=== PATIENT | female | born 1980 | race Caucasian/White ===

== ENCOUNTER 2019-12-26 12:37 | Day surgery (SDC) | payer OTHER ==
[~2019-12-26] VITALS: Ht 162.6 cm; Wt 79.5 kg
[~2019-12-26 12:37] MED LIST: FLAGYL500 MG PO; LEVAQUIN500 MG PO; MEDROL DOSE PACK4 MG PO
[2019-12-26 15:12] VITALS: BP 126/69; Ht 162.6 cm; Wt 79.5 kg
[2019-12-26 17:07] LABS: HEMOGLOBIN 12.1 g/dL (12-16); LYMPHOCYTES 32.2 % (15-50); MCH 29.4 pg (26.0-34.0); MCHC 32.7 g/dL (31.0-37.0); MCV 89.8 fL (80.0-100.0); MEAN PLATELET VOLUME 9.9 fL (7.4-10.4); NEUTROPHILS 61.3 % (40-80); PLATELET COUNT 225 10x3/uL (130-400); RBC 4.12 10x6/uL (4.00-5.40); RDW 12.7 % (11.5-14.5); WBC 8.3 10x3/uL (4.8-10.8)
[2019-12-26 17:11] LABS: CALCIUM 7.8 mg/dL (8.5-10.1); CARBON DIOXIDE 26.6 mmol/L (21.0-32.0); CREATININE - SERUM 0.9 mg/dL (0.6-1.3); POTASSIUM - SERUM 3.6 mmol/L (3.5-5.1)
[2019-12-26 17:17] LABS: ALBUMIN 3.2 g/dL (3.4-5.0); BILIRUBIN - TOTAL 0.29 mg/dL (0.2-1.3); PROTEIN - SERUM 6.4 g/dL (6.4-8.2)
[2019-12-26 19:30] VITALS: BP 96/60
--- NOTE | 2019-12-26 19:30 | NUR ---
PATIENT RESTING IN BED WITH EYES CLOSED AND NO S/S OF DISTRESS. PATIENT WAKES EASILY TO ANSWER QUESTIONS. PATIENT DENIES NEEDS AT THIS TIME. BED IN LOWEST POSITION AND CALL LIGHT WITHIN REACH. ENCOURAGED THE PATIENT TO CALL IF SHE HAS NEEDS. WILL CONTINUE TO MONITOR.
[2019-12-27 00:02] VITALS: BP 102/67
--- NOTE | 2019-12-27 00:12 | NUR ---
PATIENT VOIDED APROX 900ML
[2019-12-27 00:33] LABS: BILIRUBIN NEGATIVE (NEGATIVE); GLUCOSE NEGATIVE (NEGATIVE); KETONE NEGATIVE (NEGATIVE); NITRITE NEGATIVE (NEGATIVE); UROBILINOGEN NORMAL (NORMAL)
[2019-12-27 00:39] LABS: UDS - AMPHET POSITIVE QUAL (NEGATIVE); UDS - BARB NEGATIVE QUAL (NEGATIVE); UDS - BENZO POSITIVE QUAL (NEGATIVE); UDS - COCAINE NEGATIVE QUAL (NEGATIVE); UDS - OPIATE POSITIVE QUAL (NEGATIVE); UDS - PCP NEGATIVE QUAL (NEGATIVE); UDS - THC POSITIVE QUAL (NEGATIVE)
[2019-12-27 05:09] VITALS: BP 88/57
[2019-12-27] MEDS ORDERED: HYDROCODON-ACE1 EA10 PO (05:13)
--- NOTE | 2019-12-27 08:24 | NUR ---
PT ALERT X 4. BREATH SOUNDS CLEAR BILAT. IV TO LEFT UPPER ARM, PATENT, DRESSING CDI. FRED TO LEFT LOWER LEG. PT REPORTING PAIN OF 8/10, MEDICATED PER ORDERS, WILL MONITOR. BED LOW, CALL LIGHT IN REACH. NO OTHER NEEDS AT THIS TIME.
[2019-12-27 09:23] VITALS: BP 100/66
--- NOTE | 2019-12-27 11:27 | MORECARE ---
CASE MANAGEMENT DISCHARGE SUMMARY PATIENT: JOSUÉ COLEMAN MICHEAL UNIT: [id number] ADM DATE: 12/26/19 AGE: 39 : [birth year] SEX: F ROOM/BED: D.1212 AUTHOR: DORA PERRIN PHYSICIAN: REFERRING PHYSICIAN: HALIMA KELSEY MD DATE OF SERVICE: 12/27/19 Discharge Plan Patient Name: JOSUÉ COLEMAN Facility: [facility]:[place] : 1980 Planned Disposition: Home Anticipated Discharge Date: 12/27/19 Discharge Date: Expected LOS: 1 Initial Reviewer: [email or web address] Initial Review Date: 12/27/2019 Generated: 12/27/19 12:26 pm Patient Name: JOSUÉ COLEMAN Page [id number] at 1127 All edits/amendments must be made on the electronic document DICTATION DATE: 12/27/19 1126 STAFFING RN: BRIANNA 12/27/19 1126 RPT#: [id number] DC DATE: STATUS: ADM IN [facility] [address] [place] [address] END OF REPORT
--- NOTE | 2019-12-27 11:33 | MORECARE ---
CASE MANAGEMENT DISCHARGE SUMMARY PATIENT: JOSUÉ COLEMAN MICHEAL UNIT: [id number] ADM DATE: 12/26/19 AGE: 39 : 82 SEX: F ROOM/BED: D.1212 AUTHOR: DORA PERRIN PHYSICIAN: REFERRING PHYSICIAN: HALIMA KELSEY MD DATE OF SERVICE: 12/27/19 Discharge Plan Patient Name: JOSUÉ COLEMAN Facility: [facility]:[place] : 1980 Planned Disposition: Home Anticipated Discharge Date: 12/27/19 Discharge Date: Expected LOS: 1 Initial Reviewer: [email or web address] Initial Review Date: 12/27/2019 Generated: 12/27/19 12:33 pm Comments DCP- Discharge Planning Updated by [email or web address]: Ruth Rose on 12/27/19 10:[address] CM received call from patient's nurse stating patient needed crutches for discharge today. States Dr. Thompson wanted therapy to make sure she was safe on the crutches before she was discharged to home today. CM spoke with patient about DME preference. Patient stated she didn't care which DME CM used to get crutches. Patient signed Patient Choice Form. CM called [facility]. Spoke with Pio. Pio stated he didn't know if they had crutches short enough for patient who is 5'4". States he will check and call CM back. CM awaiting return call. Last DP export: 12/27/19 10:27 a Patient Name: JOSUÉ COLEMAN Page [id number] at 1133 All edits/amendments must be made on the electronic document DICTATION DATE: 12/27/19 1133 RIGGING SUPERVISOR: BRIANNA 12/27/19 1133 RPT#: [id number] DC DATE: STATUS: ADM IN [facility] [address] [place] [address] END OF REPORT
--- NOTE | 2019-12-27 12:06 | MORECARE ---
CASE MANAGEMENT DISCHARGE SUMMARY PATIENT: JOSUÉ COLEMAN MICHEAL UNIT: [id number] ADM DATE: 12/26/19 AGE: 39 : [birth year] SEX: F ROOM/BED: D.1212 AUTHOR: DORA PERRIN PHYSICIAN: REFERRING PHYSICIAN: HALIMA KELSEY MD DATE OF SERVICE: 12/27/19 Discharge Plan Patient Name: JOSUÉ COLEMAN Facility: [facility]:[place] : 1980 Planned Disposition: Home Anticipated Discharge Date: 12/27/19 Discharge Date: Expected LOS: 1 Initial Reviewer: [email or web address] Initial Review Date: 12/27/2019 Generated: 12/27/19 1:05 pm Comments DCP- Discharge Planning Updated by [email or web address]: Ruth Rose on 12/27/19 11:[address] Pio with [employer] called back and stated the shortest crutches they had in stock were too tall for patient, they would only go down to 5'6". CM called [employer]. Spoke with Bao. States they are not in network with [employer]. CM called [employer]. Left message with answering service. DCP- Discharge Planning Updated by [email or web address]: Ruth Rose on 12/27/19 10:[address] CM received call from patient's nurse stating patient needed crutches for discharge today. States Dr. Thompson wanted therapy to make sure she was safe on the crutches before she was discharged to home today. CM spoke with patient about DME preference. Patient stated she didn't care which DME CM used to get crutches. Patient signed Patient Choice Form. CM called [employer]. Spoke with Pio. Pio stated he didn't know if they had crutches short enough for patient who is 5'4". States he will check and call CM back. CM awaiting return call. Last DP export: 12/27/19 10:33 a Patient Name: JOSUÉ COLEMAN Page [phone] at 1206 All edits/amendments must be made on the electronic document DICTATION DATE: 12/27/19 1205 CREATIVE ART DIRECTOR: DM 12/27/195 RPT#: [id number] DC DATE: STATUS: ADM IN [facility] [address] [place] [address] END OF REPORT
--- NOTE | 2019-12-27 12:13 | MORECARE ---
CASE MANAGEMENT DISCHARGE SUMMARY PATIENT: JOSUÉ COLEMAN MICHEAL UNIT: [id number] ADM DATE: 12/26/19 AGE: 39 : 82 SEX: F ROOM/BED: D.1212 AUTHOR: DORA PERRIN PHYSICIAN: REFERRING PHYSICIAN: HALIMA KELSEY MD DATE OF SERVICE: 12/27/19 Discharge Plan Patient Name: JOSUÉ COLEMAN Facility: [facility]:[place] : 1980 Planned Disposition: Home Anticipated Discharge Date: 12/27/19 Discharge Date: Expected LOS: 1 Initial Reviewer: [email or web address] Initial Review Date: 12/27/2019 Generated: 12/27/19 1:13 pm Comments DCP- Discharge Planning Updated by [email or web address]: Ruth Rose on 12/27/19 11:[address] Pio with [employer] called back and stated the shortest crutches they had in stock were too tall for patient, they would only go down to 5'6". CM called [employer]. Spoke with Bao. States they are not in network with [employer]. CM called [facility]. Left message with answering service. Received call back from [facility]. They do not have crutches that will fit 5'4" person in stock. CM called [facility]. Left message with answering service. DCP- Discharge Planning Updated by [email or web address]: Ruth Rose on 12/27/19 10:[address] CM received call from patient's nurse stating patient needed crutches for discharge today. States Dr. Thompson wanted therapy to make sure she was safe on the crutches before she was discharged to home today. CM spoke with patient about DME preference. Patient stated she didn't care which DME CM used to get crutches. Patient signed Patient Choice Form. CM called [employer]. Spoke with Pio. Pio stated he didn't know if they had crutches short enough for patient who is 5'4". States he will check and call CM back. CM awaiting return call. Last DP export: 12/27/19 11:06 a Patient Name: JOSUÉ COLEMAN Page [id number] at 1213 All edits/amendments must be made on the electronic document DICTATION DATE: 12/27/191212 WEDDING FLORIST: BRIANNA 12/27/191212 RPT#: [id number] DC DATE: STATUS: ADM IN [facility] [address] [place] [address] END OF REPORT
[2019-12-27 12:28] VITALS: BP 95/56
--- NOTE | 2019-12-27 12:57 | MORECARE ---
CASE MANAGEMENT DISCHARGE SUMMARY PATIENT: JOSUÉ COLEMAN MICHEAL UNIT: [id number] ADM DATE: 12/26/19 AGE: 39 : 82 SEX: F ROOM/BED: D.1212 AUTHOR: MARYCHUY,DORA PHYSICIAN: REFERRING PHYSICIAN: HALIMA KELSEY MD DATE OF SERVICE: 12/27/19 Discharge Plan Patient Name: JOSUÉ COLEMAN Facility: [facility]:[place] : 1980 Planned Disposition: Home Anticipated Discharge Date: 12/27/19 Discharge Date: Expected LOS: 1 Initial Reviewer: [email or web address] Initial Review Date: 12/27/2019 Generated: 12/27/19 1:56 pm Comments DCP- Discharge Planning Updated by [email or web address]: Ruth Rose on 12/27/19 11:[address] Pio with [employer] called back and stated the shortest crutches they had in stock were too tall for patient, they would only go down to 5'6". CM called [employer]. Spoke with Bao. States they are not in network with [email or web address]. CM called [facility]. Left message with answering service. Received call back from [facility]. They do not have crutches that will fit 5'4" person in stock. CM called [facility]. Left message with answering service. Received call back from [facility]. CM was able to find crutches, in stock, at [facility] on [address] and [facility] but they would cost the patient 49.99 +tax. CM spoke with patient about this. Patient states therapist had to adjust the crutches to be taller and wants CM to see if the crutches from [facility] would work. CM spoke with PT, Tony, who stated crutches that fit someone 5'6" would work for patient. CM called [facility] left message with answering service. Awaiting return call. DCP- Discharge Planning Updated by [email or web address]: Ruth Rose on 12/27/19 10:[address] CM received call from patient's nurse stating patient needed crutches for discharge today. States Dr. Thompson wanted therapy to make sure she was safe on the crutches before she was discharged to home today. CM spoke with patient about DME preference. Patient stated she didn't care which DME CM used to get crutches. Patient signed Patient Choice Form. CM called [facility]. Spoke with Pio. Pio stated he didn't know if they had crutches short enough for patient who is 5'4". States he will check and call CM back. CM awaiting return call. Last DP export: 12/27/19 11:13 a Patient Name: JOSUÉ COLEMAN Page [id number] at 1257 All edits/amendments must be made on the electronic document DICTATION DATE: 12/27/191255 HUMAN RESOURCES EXECUTIVE: BRIANNA 12/27/191255 RPT#: [id number] DC DATE: STATUS: ADM IN [facility] [address] [place] [address] END OF REPORT
--- NOTE | 2019-12-27 13:09 | MORECARE ---
CASE MANAGEMENT DISCHARGE SUMMARY PATIENT: JOSUÉ COLEMAN MICHEAL UNIT: [id number] ADM DATE: 12/26/19 AGE: 39 : 82 SEX: F ROOM/BED: D.1212 AUTHOR: MARYCHUY,DORA PHYSICIAN: REFERRING PHYSICIAN: HALIMA KELSEY MD DATE OF SERVICE: 12/27/19 Discharge Plan Patient Name: JOSUÉ COLEMAN Facility: [facility]:[place] : 1980 Planned Disposition: Home Anticipated Discharge Date: 12/27/19 Discharge Date: Expected LOS: 1 Initial Reviewer: [email or web address] Initial Review Date: 12/27/2019 Generated: 12/27/19 2:09 pm Comments DCP- Discharge Planning Updated by [email or web address]: Ruth Rose on 12/27/19 11:[address] Pio with [employer] called back and stated the shortest crutches they had in stock were too tall for patient, they would only go down to 5'6". CM called [employer]. Spoke with Bao. States they are not in network with [employer]. CM called [facility] [place]. Left message with answering service. Received call back from [facility]. They do not have crutches that will fit 5'4" person in stock. CM called [facility]. Left message with answering service. Received call back from [facility]. CM was able to find crutches, in stock, at [facility] on [address] and [facility] but they would cost the patient 49.99 +tax. CM spoke with patient about this. Patient states therapist had to adjust the crutches to be taller and wants CM to see if the crutches from [employer] would work. CM spoke with PT, Tony, who stated crutches that fit someone 5'6" would work for patient. CM called [employer] left message with answering service. Awaiting return call. DCP- Discharge Planning Updated by [email or web address]: Ruth Rose on 12/27/19 10:[address] CM received call from patient's nurse stating patient needed crutches for discharge today. States Dr. Thompson wanted therapy to make sure she was safe on the crutches before she was discharged to home today. CM spoke with patient about DME preference. Patient stated she didn't care which DME CM used to get crutches. Patient signed Patient Choice Form. CM called [facility]. Spoke with Pio. Pio stated he didn't know if they had crutches short enough for patient who is 5'4". States he will check and call CM back. CM awaiting return call. External Providers External Provider: [facility] Next Contact Date: Service Request Date: Service Type: Resolution: Reviewer: Comments: Last DP export: 12/27/19 11:57 a Patient Name: JOSUÉ COLEMAN Page [id number] at 1309 All edits/amendments must be made on the electronic document DICTATION DATE: 12/27/19 1309 STUDIO POTTER: BRIANNA 12/27/19 1309 RPT#: [id number] DC DATE: STATUS: ADM IN [facility] [address] [place] [address] END OF REPORT
--- NOTE | 2019-12-27 13:16 | MORECARE ---
CASE MANAGEMENT DISCHARGE SUMMARY PATIENT: JOSUÉ COLEMAN MICHEAL UNIT: [id number] ADM DATE: 12/26/19 AGE: 39 : [birth year] SEX: F ROOM/BED: D.1212 AUTHOR: MARYCHUY,DOC PHYSICIAN: REFERRING PHYSICIAN: HALIMA KELSEY MD DATE OF SERVICE: 12/27/19 Discharge Plan Patient Name: JOSUÉ COLEMAN Facility: [facility]:[place] : 1980 Planned Disposition: Home Anticipated Discharge Date: 12/27/19 Discharge Date: Expected LOS: 1 Initial Reviewer: [email or web address] Initial Review Date: 12/27/2019 Generated: 12/27/19 2:15 pm Comments DCP- Discharge Planning Updated by [email or web address]: Ruth Rose on 12/27/19 12:[address] Pio with [facility] called back and stated the shortest crutches they had in stock were too tall for patient, they would only go down to 5'6". CM called [facility]. Spoke with [employer]. States they are not in network with [employer]. CM called [facility]. Left message with answering service. Received call back from [facility]. They do not have crutches that will fit 5'4" person in stock. CM called [facility]. Left message with answering service. Received call back from [facility]. CM was able to find crutches, in stock, at [facility] on [address] and [facility] but they would cost the patient 49.99 +tax. CM spoke with patient about this. Patient states therapist had to adjust the crutches to be taller and wants CM to see if the crutches from [facility] would work. CM spoke with PT, Tony, who stated crutches that fit someone 5'6" would work for patient. CM called [facility] left message with answering service. Awaiting return call. Received call back from [facility] at [facility]. Informed Pio what PT said about crutches height. Pio stated he was now in the office and has found a set of crutches that will fit the patient. States he will deliver them to the hospital now. CM faxed records as requested. CM informed patient and her nurse. DCP- Discharge Planning Updated by [email or web address]: Ruth Rose on 12/27/19 10:[address] CM received call from patient's nurse stating patient needed crutches for discharge today. States Dr. Thompson wanted therapy to make sure she was safe on the crutches before she was discharged to home today. CM spoke with patient about DME preference. Patient stated she didn't care which DME CM used to get crutches. Patient signed Patient Choice Form. CM called [facility]. Spoke with Pio. Pio stated he didn't know if they had crutches short enough for patient who is 5'4". States he will check and call CM back. CM awaiting return call. Last DP export: 12/27/19 12:09 p Patient Name: JOSUÉ COLEMAN Page [id number] at 1316 All edits/amendments must be made on the electronic document DICTATION DATE: 12/27/19 1315 MANHOLE BUILDER: BRIANNA 12/27/19 1315 RPT#: [id number] DC DATE: STATUS: ADM IN [facility] [address] [place] [address] END OF REPORT
--- NOTE | 2019-12-27 15:03 | NUR ---
DISCHARGE PAPERWORK SIGNED, ALL QUESTIONS ANSWERED. IV TO LEFT UPPER ARM DC'D, TIP INTACT. ESCORTED OUT VIA WHEELCHAIR.
--- NOTE | 2019-12-28 07:34 | MORECARE ---
CASE MANAGEMENT DISCHARGE SUMMARY PATIENT: JOSUÉ COLEMAN MICHEAL UNIT: [id number] ADM DATE: 12/26/19 AGE: 39 : 82 SEX: F ROOM/BED: D.1212 AUTHOR: MARYCHUY,DOC PHYSICIAN: REFERRING PHYSICIAN: HALIMA KELSEY MD DATE OF SERVICE: 12/28/19 Discharge Plan Patient Name: JOSUÉ COLEMAN Facility: [facility]:[place] : 1980 Planned Disposition: Home Anticipated Discharge Date: 12/27/19 Discharge Date: 12/27/2019 Expected LOS: 1 Initial Reviewer: [email or web address] Initial Review Date: 12/27/2019 Generated: 12/28/19 8:33 am Comments DCP- Discharge Planning Updated by [email or web address]: Ruth Rose on 12/27/19 12:[address] [facility] called back and stated the shortest crutches they had in stock were too tall for patient, they would only go down to 5'6". CM called [employer]. Spoke with Bao. States they are not in network with [employer]. CM called [facility]. Left message with answering service. Received call back from [facility]. They do not have crutches that will fit 5'4" person in stock. CM called [facility]. Left message with answering service. Received call back from [facility]. CM was able to find crutches, in stock, at [facility] on [address] and [facility] but they would cost the patient 49.99 +tax. CM spoke with patient about this. Patient states therapist had to adjust the crutches to be taller and wants CM to see if the crutches from [facility] would work. CM spoke with PT, Tony, who stated crutches that fit someone 5'6" would work for patient. CM called [facility] left message with answering service. Awaiting return call. Received call back from [facility] at [facility]. Informed Pio what PT said about crutches height. Pio stated he was now in the office and has found a set of crutches that will fit the patient. States he will deliver them to the hospital now. CM faxed records as requested. CM informed patient and her nurse. DCP- Discharge Planning Updated by [email or web address]: Ruth Rose on 12/27/19 10:[address] CM received call from patient's nurse stating patient needed crutches for discharge today. States Dr. Thompson wanted therapy to make sure she was safe on the crutches before she was discharged to home today. CM spoke with patient about DME preference. Patient stated she didn't care which DME CM used to get crutches. Patient signed Patient Choice Form. CM called [email or web address]. Spoke with Pio. Pio stated he didn't know if they had crutches short enough for patient who is 5'4". States he will check and call CM back. CM awaiting return call. Last DP export: 12/27/19 12:16 p Patient Name: JOSUÉ COLEMAN Page [id number] at 0734 All edits/amendments must be made on the electronic document DICTATION DATE: 12/28/19732 BUSINESS RULES ANALYST: BRIANNA 12/28/1932 RPT#: [id number] DC DATE:12/27/19 STATUS: DIS IN [facility] [address] [place] [address] END OF REPORT
== END 2019-12-27 15:05 | disposition home or self-care (01) ==
LOC: OBSVTIME → D.ER 12:37 → OBSVTIME 13:27 → D.OPS 13:27 → D.ER 13:27 → D.M3 13:27 → D.OPS 12-27 15:05 → D.M3 12-27 15:05
PROVIDERS: Family Medicine; ATTEND Internal Medicine Nephrology
DX: S82.892B Other fracture of left lower leg, initial encounter for open fracture type I or II (principal); Y00.XXXA Assault by blunt object, initial encounter